=== PATIENT | male | born 1990 | race Caucasian/White ===

== ENCOUNTER 2021-09-24 13:48 | Emergency (ER) | payer OTHER ==
[~2021-09-24] VITALS: Ht 177.8 cm; Wt 100.0 kg
[2021-09-24 14:18] VITALS: TEMP 98.2
[2021-09-24] MEDS ORDERED: RT ADVAIR 128 DISKUS IH (14:21)
[2021-09-24] MEDS ORDERED: CRUTCHES MC (15:37)
[2021-09-24 15:41] VITALS: BP 130/81; PULSE 82
== END 2021-09-24 15:40 | disposition home or self-care (01) ==
LOC: COL.ER 13:48
DX: S83.91XA Sprain of unspecified site of right knee, initial encounter (principal); J45.909 Unspecified asthma, uncomplicated; F17.210 Nicotine dependence, cigarettes, uncomplicated; Z79.51 Long term (current) use of inhaled steroids; X50.1XXA Overexertion from prolonged static or awkward postures, initial encounter; Y93.F2 Activity, caregiving, lifting; Y99.0 Civilian activity done for income or pay